=== PATIENT | female | born 1995 | race African-American/Black ===

== ENCOUNTER 2022-06-26 09:36 | Emergency (ER) | payer MEDICAID ==
[~2022-06-26] VITALS: Ht 167.6 cm; Wt 68.0 kg
== END 2022-06-26 10:33 | disposition home or self-care (01) ==
LOC: FSED 10:11
DX: N92.6 Irregular menstruation, unspecified (principal); F17.290 Nicotine dependence, other tobacco product, uncomplicated
CPT/HCPCS: 99282